=== PATIENT | male | born 1975 | race Caucasian/White ===

== ENCOUNTER 2021-10-26 09:14 | Day surgery (SDC) | payer OTHER ==
[~2021-10-26] VITALS: Ht 180.3 cm; Wt 88.4 kg
[~2021-10-26 09:14] MED LIST: LISI20TA37 PO; NS 1,000 ML IV ONE
[2021-10-26] MEDS ORDERED: propofoL 200 MG/20 ML VIAL As Ordered ONE (10:29)
[2021-10-26] MEDS ORDERED: LIDOCAINE 2% 100MG/5ML SDV (FOR ANES.) As Ordered ONE (10:29)
[2021-10-26 11:10] VITALS: BP 127/74
== END 2021-10-26 11:19 | disposition home or self-care (01) ==
LOC: M OPP 09:14
PROVIDERS: ATTEND Internal Medicine Gastroenterology
DX: Z12.11 Encounter for screening for malignant neoplasm of colon (principal); Z80.0 Family history of malignant neoplasm of digestive organs; I10 Essential (primary) hypertension; Z79.899 Other long term (current) drug therapy